=== PATIENT | female | born 1990 | race Caucasian/White ===

== ENCOUNTER 2025-06-03 07:47 | Outpatient (CLI) | payer BC, SELFPAY | END 2025-06-03 07:48 | disposition home or self-care (01) | PROVIDERS: Visit Provider Obstetrics & Gynecology | DX: Z34.93 Encounter for supervision of normal pregnancy, unspecified, third trimester (principal) | CPT/HCPCS: 86780 ==

== ENCOUNTER 2025-06-03 07:59 | Outpatient (CLI) | payer BC, SELFPAY ==
--- NOTE | 2025-06-03 08:15 | CRLHL7_ITS ---
For Patients: As a result of the Century Cures Act, medical imaging exams and procedure reports are released immediately into your electronic medical record. You may view this report before your referring provider. If you have questions, please contact your health care provider. OB ULTRASOUND GUSTAVO by US: 08/22/2025. GA: 28 w, 4 d. Single. Comparison: Andree Johnson, Images Requested. INDICATION: Obesity complicating . TECHNIQUE: Real time parkinson scale imaging of the fetus was performed. Transabdominal imaging performed. CERVIX: Not visualized. POSITIONING: Vertex. AMNIOTIC FLUID: 6.6 cm SDP (N: greater than 2 x 1 cm) PLACENTA: Technique: Transabdominal. PLACENTA POSITION: Posterior. DOPPLER: heart rate: 144 bpm. BIOMETRY: BPD: 7.1 cm, 28 weeks 2 days, 30.5 percentile. HC: 25.7 cm, 28 weeks 0 days, 7.8 percentile. AC: 24.3 cm, 28 weeks 4 days, 42.8 percentile. FL: 5.2 cm, 27 weeks 5 days, 15.5 percentile. FL/AC ratio: 21.4 percent. HC/AC ratio: 1.1. EFW: 1195 g. Weight: 2 lbs, 10 oz. age by this US: 28 w, 1 d. GUSTAVO by this US: 08/25/2025. Percentile by GUSTAVO: 25.3 percentile. IMPRESSION: 1) Sonographic gestational age 28 weeks 1 day and sonographic due date 08/25/2025. Good correlation with dates. Normal growth. 2) Estimated weight at the 25th percentile. Abdominal circumference 43rd percentile. VALDEMAR MATHUR M.D. Diagnostic Radiologist [email or web address] DW/Dictated by: Valdemar Mathur MD @ 06/05/2025 1:14:00 PM (Electronically Signed)
== END 2025-06-03 08:00 | disposition home or self-care (01) ==
LOC: US 08:00
PROVIDERS: Visit Provider Physician Assistant
DX: O99.213 Obesity complicating pregnancy, third trimester (principal); Z3A.28 28 weeks gestation of pregnancy
CPT/HCPCS: 76815